=== PATIENT | female | born 1995 | race African-American/Black ===

== ENCOUNTER 2017-04-30 16:38 | Emergency (ER) | payer OTHER ==
[~2017-04-30] VITALS: Ht 175.3 cm; Wt 65.9 kg
[2017-04-30 16:43] VITALS: BP 135/76
== END 2017-04-30 17:57 | disposition home or self-care (01) ==
LOC: EME 16:38
DX: R51 Headache (principal); S46.812A Strain of other muscles, fascia and tendons at shoulder and upper arm level, left arm, initial encounter; V49.50XA Passenger injured in collision with unspecified motor vehicles in traffic accident, initial encounter; Y92.410 Unspecified street and highway as the place of occurrence of the external cause
CPT/HCPCS: 99281; 99284